=== PATIENT | female | born 1950 | race Caucasian/White ===

== ENCOUNTER 2019-01-18 18:03 | Emergency (ER) | payer BC, MEDICARE ==
--- NOTE | 2019-01-18 18:17 | UC ---
Complaint Female HPI - HPI Summary HPI Summary: 68-year-old female who has had urinary frequency and burning over the past few days. She also states she fell about 4 weeks ago and has had left upper humerus pain since then. - History Of Current Complaint Stated Complaint: FREQUENT URINATION Time Seen by Provider: 01/18/19 18:17 Hx Obtained From: Patient ?: No Onset/Duration: Gradual Onset Timing: Intermittent Severity Initially: Mild Severity Currently: Mild Character: Burning Aggravating Factor(s): Urination Alleviating Factor(s): Nothing Associated Signs And Symptoms: Positive: Negative - Allergies/Home Medications Allergies/Adverse Reactions: Allergies Allergy/AdvReac Type Severity Reaction Status Date / Time No Known Allergies Allergy Verified 01/18/19 18:33 Home Medications: Home Medications Aspirin [Children's Aspirin] 81 mg PO DAILY 01/18/19 [History Confirmed 01/18/19 ] Enalapril TAB* [Vasotec TAB*] 20 mg PO DAILY 01/18/19 [History Confirmed ] Insulin LISPRO* [HumaLOG*] 28 units SUBCUT DIRECTED 01/18/19 [History Confirmed 01/18/19] Liraglutide [Victoza 3-Joel] 1.2 mg SQ DAILY 01/18/19 [History Confirmed 01/18/19 ] Simvastatin [Zocor] 40 mg PO DAILY 01/18/19 [History Confirmed 01/18/19] metFORMIN* [Glucophage 500 MG TAB *] 500 mg PO DAILY 01/18/19 [History Confirmed 01/18/19] PMH/Surg Hx/FS Hx/Imm Hx Previously Healthy: Yes Review of Systems All Other Systems Reviewed And Are Negative: Yes Genitourinary: Positive: Dysuria, Frequency, Urgency Musculoskeletal: Positive: Other: - Patient has full range of motion of her extremities however she does have some soreness to her left proximal humerus as a result of falling about 4 or 5 weeks ago. Is Patient Immunocompromised?: No Physical Exam Triage Information Reviewed: Yes Appearance: Well-Appearing, No Pain Distress, Well-Nourished Vital Signs Reviewed: Yes Eyes: Positive: Conjunctiva Clear Respiratory: Positive: Lungs clear, Normal breath sounds, No respiratory distress, No accessory muscle use Cardiovascular: Positive: RRR, No Murmur, Pulses Normal, Brisk Capillary Refill Abdomen Description: Positive: Nontender, No Organomegaly, Soft. Negative: CVA Tenderness (R), CVA Tenderness (L), Distended, Guarding, Hepatomegaly, Splenomegaly Bowel Sounds: Positive: Present Musculoskeletal: Positive: Strength Intact, ROM Intact, Other: - Mild pain on palpation to the proximal humerus, no swelling, deformity bruising is noted. Full range of motion. Neurological: Positive: Alert, Muscle Tone Normal Psychological Exam: Normal Skin Exam: Normal Complaint Female Dx - Course Course Of Treatment: X-ray left humerus: Negative as read by myself Urinalysis: Positive leukocytes. The patient was given Bactrim DS one tab by mouth here and to continue twice a day for 5 days. She can apply heat to the sore area of her arm. She is to follow-up with her primary care provider if no improvement in symptoms of the UTI or the arm pain. - Differential Dx/Diagnosis Provider Diagnosis: UTI (urinary tract infection), Pain of left humerus Discharge ED - Sign-Out/Discharge Documenting (check all that apply): Patient Departure All imaging exams completed and their final reports reviewed: No - Discharge Plan Condition: Fair Disposition: HOME Prescriptions: Sulfamethox/Trimethoprim DS* [Bactrim DS 800/160 TAB*] 1 tab PO BID 5 Days #9 tab Patient Education Materials: Urinary Tract Infection in Older Adults (ED) Referrals: Arely Rojas PA [Primary Care Provider] - Additional Instructions: Increase fluids. Follow-up with your primary care provider if no improvement in 2 or 3 days. You can apply warm moist compress to the sore area on your arm and take Tylenol for pain. - Billing Disposition and Condition Condition: FAIR Disposition: Home
[2019-01-18 18:33] VITALS: BP 128/62
[2019-01-18] MEDS ORDERED: Sulfamethox/Trimethoprim DS 800/160* TAB PO ONE (18:59)
--- NOTE | 2019-01-19 11:17 | UC ---
- Progress Note Progress Note: Final radiologist reading of the left humerus x-ray from January 18, 2019 comes back as no fracture. Provider interpretation same date is the same therefore there is no discrepancy. Course/Dx - Diagnoses Provider Diagnoses: UTI (urinary tract infection), Pain of left humerus Discharge ED - Sign-Out/Discharge Documenting (check all that apply): Patient Departure All imaging exams completed and their final reports reviewed: Yes - Discharge Plan Condition: Fair Disposition: HOME Prescriptions: Sulfamethox/Trimethoprim DS* [Bactrim DS 800/160 TAB*] 1 tab PO BID 5 Days #9 tab Patient Education Materials: Urinary Tract Infection in Older Adults (ED) Referrals: Arely Rojas PA [Primary Care Provider] - Additional Instructions: Increase fluids. Follow-up with your primary care provider if no improvement in 2 or 3 days. You can apply warm moist compress to the sore area on your arm and take Tylenol for pain. - Billing Disposition and Condition Condition: FAIR Disposition: Home
== END 2019-01-18 19:26 | disposition home or self-care (01) ==
LOC: UCCORT 18:03
DX: N39.0 Urinary tract infection, site not specified (principal); M79.622 Pain in left upper arm
CPT/HCPCS: 81003; 87077; 87086; 87186; 99212; A9270-GY; G0463